=== PATIENT | male | born 1980 | race Caucasian/White ===

== ENCOUNTER 2022-01-07 10:31 | Emergency (ER) | payer MEDICARE, SELFPAY ==
--- NOTE | ~2022-01-07 | XR_ITS ---
EXAMINATION: XR foot RT min 3V, XR foot LT min 3V DATE: 01/07/2022 11:07 INDICATION: Bilateral foot pain TECHNIQUE: 1. Dorsoplantar, two oblique and lateral views of the left foot were obtained. 2. Dorsoplantar, two oblique and lateral views of the right foot were obtained. COMPARISON: None. FINDINGS: Bone alignment is normal at both feet. No fractures. Joint spaces are normal. No erosions. Minute <1 mm radiopaque foreign body projecting over the mid level of the skin surface lateral to the anterior process of the calcaneus. Soft tissues are otherwise unremarkable at both feet and ankles. IMPRESSION: 1. No osseous abnormality at either foot. Reviewed, dictated and finalized at location A. IMPRESSION: 1. No osseous abnormality at either foot.
[2022-01-07] MEDS: NALOXONE HCL INJ 2 MG/2 ML AMP (10:49)
[2022-01-07 10:51] VITALS: BP 152/85; PULSE 73; RESP 16; TEMP 36.2; O2SAT 98
--- NOTE | 2022-01-07 10:57 | PC.NURSE ---
upon arrival patient is unable to maintain balance and is crying irately. patient is placed into bed and started falling asleep, patient was sternal rubbed to waken and stated he used meth prior to arrival. patient sternal rubbed again and asked if there was any fentanyl in the meth. he states there was. erp notified of findings, narcan override form pyxis. verbal order 2x verfied to give the full 2mg IM. patient responded well to Narcan and is awake, alert and oriented, able to follow commands and is not falling asleep at this time. patient is able to answer triage questions appropriatly at this time.
--- NOTE | 2022-01-07 11:12 | ED.EXTPRO ---
HPI - Extremity Problem General Chief complaint: Extremity Problem,Nontraumatic Stated complaint: pain in R foot Time Seen by Provider: 01/07/22 10:35 Source: patient and RN notes reviewed Mode of arrival: ambulatory Limitations: no limitations History of Present Illness Complaint: extremity pain Onset (ago): day(s) (1) Location: right Severity scale (1-10): 3 Quality: aching and dull Radiation: other (right foot pain) Relieving factors: immobilization Exacerbating factors: weight bearing Associated symptoms: myalgias Related Data Home Medications Medication Instructions Recorded Confirmed No Home Medications 01/07/22 01/07/22 Allergies Allergy/AdvReac Type Severity Reaction Status Date / Time Penicillins Allergy Unknown Unknown Verified 01/07/22 10:59 Review of Systems Review of Systems: All systems reviewed & are unremarkable except as noted in HPI and below Constitutional: Constitutional: Reports no additional constitutional complaints Eyes: Eyes: Reports no additional eye complaints ENT: Reports system reviewed and no additional complaints, except as documented Cardiovascular: Cardiovascular: Reports no additional cardiovascular complaints Respiratory: Respiratory: Reports no additional respiratory complaints Gastrointestinal: Gastrointestinal: Reports no additional gastrointestinal complaints Musculoskeletal: Musculoskeletal: Reports no additional musculoskeletal complaints and Reports myalgias Integumentary/Breasts: Skin/Breast: Reports system reviewed and no additional complaints, except as docu Neurologic: Reports system reviewed and no additional complaints, except as documented Psychiatric: Psychiatric: Reports no additional psychiatric complaints Endocrine: Endocrine: Reports no additional endocrine complaints Hematologic/Lymphatic: Hematologic/Lymphatic: Reports no additional hematologic/lymphatic complaints Allergic/Immunologic: Allergic/Immunologic: Reports no additional allergic/immunologic complaints PMFSH Past Medical History Medical History Foot sprain Exam Const: General: healthy appearing and no acute distress Nutritional Appearance: well nourished Orientation/consciousness: patient oriented x3 Limitations: no limitations HENMT: Head: normal to inspection Ears: external ears normal, TM's normal bilaterally and EAC's normal General nose exam: Normal external nose present and Normal nares present Face and sinus: normal facial exam and sinuses nontender Mouth: Yes Normal oral and palatal mucosa present and Yes moist mucous membranes Teeth and gingiva: dentition normal Throat: posterior oropharynx normal Eyes: Conjunctivae: conjunctivae normal Pupils: Equal, round and reactive pupils present EOM: EOMs intact bilaterally Neck: Neck: normal visual inspection, no lymphadenopathy and no meningeal signs Chest: Chest palpation & inspection: normal inspection of the chest Resp: Effort & Inspection: normal respiratory effort Auscultation: clear to auscultation bilaterally Cardio: Rate: regular rate Rhythm: regular rhythm GI: GI Palp: Yes Soft to palpation and No Tenderness to palpation present (GI) Auscultation: normal bowel sounds : General: Yes bladder normal to palpation and Yes no CVA tenderness Back/Spine/Pelvis: Back: no CVA tenderness Skin: General skin exam: normal color Rashes: no rashes Wounds: no wounds Neuro: General: patient oriented x3, moves all extremities, no meningeal signs, no focal motor deficits and CN's II-XI intact bilaterally Cranial nerves: Yes Equal, round and reactive pupils present and Yes Nystagmus not present Speech: normal speech Gait exam (Neuro): Normal gait present Extrem: General: normal to inspection and no pedal edema Other: Minimally tender right mid-foot, no acute deformity, redness or swelling Psych: Mental Status: mental status grossly normal Affect: nor
[2022-01-07 11:31] VITALS: BP 135/84; PULSE 85; RESP 18; TEMP 36.9; O2SAT 100
== END 2022-01-07 11:35 | disposition home or self-care (01) ==
PROVIDERS: Emergency Provider Emergency Medicine
DX: M79.671 Pain in right foot (principal)
CPT/HCPCS: 73630; 96372; 99284; J2310

== ENCOUNTER 2022-02-25 01:56 | Emergency (ER) | payer MEDICARE, MEDICAID, SELFPAY ==
--- NOTE | ~2022-02-25 | XR_ITS ---
EXAMINATION: XR foot RT min 3V DATE: 02/25/2022 03:07 INDICATION: Right foot pain TECHNIQUE: Dorsoplantar, lateral, and 2 oblique views of the right foot were obtained. COMPARISON: 01/07/2022 FINDINGS: There is no fracture, dislocation, or subluxation. The bones, soft tissues, and joint space s are normal. IMPRESSION: 1. No acute osseous abnormality. Reviewed, dictated and finalized at location A.
[2022-02-25 02:07] VITALS: BP 135/87; PULSE 90; RESP 16; TEMP 37; O2SAT 100
--- NOTE | 2022-02-25 02:53 | ED.GENADULT ---
HPI - General Adult General Chief complaint: Unspecified Stated complaint: back pain Time Seen by Provider: 02/25/22 01:58 Source: patient, EMS and RN notes reviewed Mode of arrival: EMS Limitations: no limitations History of Present Illness complaint: right foot pain with radiation to the lower back----pt uses weed + gabapent Onset (ago): hour(s) (3) Location: back and right (fore-foot) Radiation: back Severity: mild Severity scale (1-10): 3 Quality: aching and dull Pain Consistency: constant Relieving factors: immobilization Exacerbating factors: movement Related Data Home Medications Medication Instructions Recorded Confirmed gabapentin 600 mg tablet 600 mg PO TID 02/25/22 02/25/22 Allergies Allergy/AdvReac Type Severity Reaction Status Date / Time Penicillins Allergy Unknown Unknown Verified 01/07/22 10:59 Review of Systems Review of Systems: All systems reviewed & are unremarkable except as noted in HPI and below Constitutional: Constitutional: Reports no additional constitutional complaints Eyes: Eyes: Reports no additional eye complaints ENT: Reports system reviewed and no additional complaints, except as documented Cardiovascular: Cardiovascular: Reports no additional cardiovascular complaints Respiratory: Respiratory: Reports no additional respiratory complaints Gastrointestinal: Gastrointestinal: Reports no additional gastrointestinal complaints Musculoskeletal: Musculoskeletal: Reports arthralgias Integumentary/Breasts: Skin/Breast: Reports system reviewed and no additional complaints, except as docu Neurologic: Reports system reviewed and no additional complaints, except as documented Psychiatric: Psychiatric: Reports no additional psychiatric complaints Endocrine: Endocrine: Reports no additional endocrine complaints Hematologic/Lymphatic: Hematologic/Lymphatic: Reports no additional hematologic/lymphatic complaints Allergic/Immunologic: Allergic/Immunologic: Reports no additional allergic/immunologic complaints PMFSH Past Medical History Medical History Foot sprain Low back pain Exam Const: General: healthy appearing and no acute distress Nutritional Appearance: well nourished Orientation/consciousness: patient oriented x3 Limitations: no limitations HENMT: Head: normal to inspection Ears: external ears normal, TM's normal bilaterally and EAC's normal General nose exam: Normal external nose present and Normal nares present Face and sinus: normal facial exam and sinuses nontender Mouth: Yes Normal oral and palatal mucosa present and Yes moist mucous membranes Teeth and gingiva: dentition normal Throat: posterior oropharynx normal Eyes: Conjunctivae: conjunctivae normal Pupils: Equal, round and reactive pupils present EOM: EOMs intact bilaterally Neck: Neck: normal visual inspection, no lymphadenopathy and no meningeal signs Chest: Chest palpation & inspection: normal inspection of the chest Resp: Effort & Inspection: normal respiratory effort Auscultation: clear to auscultation bilaterally Cardio: Rate: regular rate Rhythm: regular rhythm GI: GI Palp: Yes Soft to palpation and No Tenderness to palpation present (GI) Auscultation: normal bowel sounds : General: Yes bladder normal to palpation and Yes no CVA tenderness Back/Spine/Pelvis: Back: no CVA tenderness Skin: General skin exam: normal color Rashes: no rashes Wounds: no wounds Neuro: General: patient oriented x3, moves all extremities, no meningeal signs, no focal motor deficits and CN's II-XI intact bilaterally Cranial nerves: Yes Equal, round and reactive pupils present and Yes Nystagmus not present Speech: normal speech Gait exam (Neuro): Normal gait present Extrem: General: normal to inspection, full ROM, capillary refill normal, no pedal edema and other (minimally tender paraspinal lumbosacral back and right fore-foot. ) Right lower
[2022-02-25] MEDS: IBUPROFEN 400 MG TABLET 800 MG PO (03:04)
--- NOTE | 2022-02-25 03:23 | PC.NURSE ---
attempted to call mom patient ready for discharge, phone number not available. patient doesn't know anyone else to call. attempting to see if police will go notify mom of patient needing ride.
[2022-02-25 03:31] VITALS: BP 132/60; PULSE 70; RESP 18; O2SAT 100
--- NOTE | 2022-02-25 03:31 | PC.NURSE ---
patient made comfortable, will sleep in room 1 until police can notify mother
--- NOTE | 2022-02-25 04:00 | PC.NURSE ---
police called attempting to locate mother
--- NOTE | 2022-02-25 04:01 | PC.NURSE ---
patient took off nick wrap asking for a new one, states the nick wrap not stretchy enough. remote mortgage underwriter gave a new one, patient did not want the wrap on
--- NOTE | 2022-02-25 04:22 | PC.NURSE ---
mother is enroute per police
[2022-02-25 04:31] VITALS: BP 140/88; PULSE 78; RESP 20; TEMP 36.6; O2SAT 99
== END 2022-02-25 04:33 | disposition home or self-care (01) ==
PROVIDERS: Emergency Provider Emergency Medicine
DX: S93.601A Unspecified sprain of right foot, initial encounter (principal); M54.50 Low back pain, unspecified
CPT/HCPCS: 73630; 99283; A9270

== ENCOUNTER 2022-03-11 06:31 | Emergency (ER) | payer BC, SELFPAY ==
[2022-03-11 06:36] VITALS: BP 122/68; PULSE 72; RESP 20; TEMP 37; O2SAT 100
--- NOTE | 2022-03-11 06:36 | ECG_ITS ---
Measurements Intervals [place] Rate: 94 P: 78 [place]: 166 QRS: 34 QRSD: 109 T: 50 QT: 352 QTc: 440 Interpretive Statements SINUS RHYTHM INCOMPLETE RIGHT BUNDLE BRANCH BLOCK MINIMAL Q WAVES- INFERIOR LEADS BORDERLINE ECG NO PREVIOUS ECG AVAILABLE FOR COMPARISON Electronically Signed On 03-11-2022 8:39:36 CDT by Javier Pop D.O.
--- NOTE | 2022-03-11 06:53 | ED.MEDCLEAR ---
HPI - Medical Clearance General Chief complaint: Medical Clearance <Sterling Crockett MD - Last Filed: 03/11/22 06:59> Stated complaint: Anxiety <Sterling Crockett MD - Last Filed: 03/11/22 06:59> Source: patient and EMS <Sterling Crockett MD - Last Filed: 03/11/22 06:59> Mode of arrival: EMS <Sterling Crockett MD - Last Filed: 03/11/22 06:59> Limitations: no limitations <Sterling Crockett MD - Last Filed: 03/11/22 06:59> History of Present Illness HPI Narrative: this is a 41-year-old gentleman that lives with his mother has a history of anxiety depression and substance abuse, presents this morning via EMS with no suicidal intent no suicidal ideation, but has severe anxiety and depression of and uses multiple substances to to medicate himself to try to help with anxiety and depression, uses some alcohol/fentanyl among other things. Patient is requesting help with his anxiety and depression, there is no chest pain no shortness of breath no abdominal pain no nausea vomiting no fever chills. Patient explains that he is totally dependent on his mother as he lives at home and he has difficulty Imodium motivating himself to pay his bills. <Sterling Crockett MD - Last Filed: 03/11/22 06:59> MD complaint: medical clearance requested <Sterling Crockett MD - Last Filed: 03/11/22 06:59> Onset (ago): day(s) <Sterling Crockett MD - Last Filed: 03/11/22 06:59> Related Information Home medications: Home Medications Medication Instructions Recorded Confirmed No Home Medications 03/11/22 03/11/22 <Sterling Crockett MD - Last Filed: 03/11/22 06:59> Allergies/Adverse reactions: Allergies Allergy/AdvReac Type Severity Reaction Status Date / Time Penicillins Allergy Unknown Unknown Verified 01/07/22 10:59 <Sterling Crockett MD - Last Filed: 03/11/22 06:59> Review of Systems Review of Systems: All systems reviewed & are unremarkable except as noted in HPI and below <Sterling Crockett MD - Last Filed: 03/11/22 06:59> PMFSH Past Medical History Medical History: Medical History Foot sprain Low back pain <Sterling Crockett MD - Last Filed: 03/11/22 06:59> Exam Const: General: healthy appearing, no acute distress and alert <Sterling Crockett MD - Last Filed: 03/11/22 06:59> Nutritional Appearance: well nourished <Sterling Crockett MD - Last Filed: 03/11/22 06:59> Limitations: no limitations <Sterling Crockett MD - Last Filed: 03/11/22 06:59> HENMT: Head: normal to inspection <Sterling Crockett MD - Last Filed: 03/11/22 06:59> Face and sinus: normal facial exam <Sterling Crockett MD - Last Filed: 03/11/22 06:59> Mouth: Yes Normal oral and palatal mucosa present <Sterling Crockett MD - Last Filed: 03/11/22 06:59> Eyes: Conjunctivae: conjunctivae normal <Sterling Crockett MD - Last Filed: 03/11/22 06:59> Pupils: Equal, round and reactive pupils present <Sterling Crockett MD - Last Filed: 03/11/22 06:59> EOM: EOMs intact bilaterally <Sterling Crockett MD - Last Filed: 03/11/22 06:59> Direct Ophthalmoscopy: no photophobia <Sterling Crockett MD - Last Filed: 03/11/22 06:59> Neck: Neck: normal visual inspection, no lymphadenopathy and no meningeal signs <MD Carlton Wilson Last Filed: 03/11/22 06:59> Chest: Chest palpation & inspection: normal inspection of the chest <Sterling Crockett MD - Last Filed: 03/11/22 06:59> Resp: Effort & Inspection: normal respiratory effort <MD Carlton Wilson Last Filed: 03/11/22 06:59> Auscultation: clear to auscultation bilaterally <Sterling Crockett MD - Last Filed: 03/11/22 06:59> Cardio: Rate: regular rate <Sterling Crockett MD - Last Filed: 03/11/22 06:59> Rhythm: regular rhythm <Sterling Crockett MD - Last Filed: 03/11/22 06:59> GI: GI Palp: Yes Soft to palpation <Sterling Crockett MD - Last Filed: 03/11/22 06:5
--- NOTE | 2022-03-11 06:54 | PC.NURSE ---
states did meth 7hours ago
[2022-03-11 07:03] LABS: Basophils Absolute Auto 0.03 K/mm3 (0.00-0.10); Basophils Percent Auto 0.5 % (0.0-1.0); Eosinophils Percent Auto 1.7 % (1.0-6.0); Hematocrit 43.5 % (40.0-54.0); Hemoglobin 14.8 g/dL (14.0-18.0); Immature Granulocyte Absolute 0.01 K/mm3 (0.00-0.00); Immature Granulocyte Percent A 0.2 % (0.0-0.0); Lymphocytes Absolute Auto 1.66 K/mm3 (1.10-4.50); Mean Corpuscular Volume 91.2 fL (78.0-102.0); Mean Platelet Volume 9.2 fl (8.7-11.0); Monocytes Absolute Auto 0.51 K/mm3 (0.10-0.90); Monocytes Percent Auto 8.6 % (2.0-11.0); Neutrophils Absolute Auto 3.6 K/mm3 (1.7-7.2); Platelet Count Result 296 K/mm3 (150-420); Red Blood Count 4.77 M/mm3 (4.70-6.10); Red Cell Distribution Width 12.8 % (11.6-14.4); White Blood Count 5.9 K/mm3 (4.8-10.8)
[2022-03-11 07:13] LABS: Amphetamine Screen Urine Positive (Negative); Barbiturate Screen Urine Negative (Negative); Benzodiazepines Screen Urine Negative (Negative); Cannabinoid Screen Urine Positive (Negative); Cocaine Screen Urine Negative (Negative); Methadone Screen Urine Negative (Negative); Opiate Screen Urine Negative (Negative); Phencyclidine Screen Urine Negative (Negative)
[2022-03-11 07:25] LABS: Alanine Aminotransferase 252 U/L (16-63); Albumin Level 4.1 g/dL (3.4-5.0); Alkaline Phosphatase 92 U/L (46-116); Anion Gap 11 mmol/L (8-16); Aspartate Amino Transferase 97 U/L (15-37); Bilirubin,Total 0.5 mg/dL (0.00-1.00); Blood Urea Nitrogen 12 mg/dL (7-18); Calcium 8.9 mg/dL (8.5-10.1); Carbon Dioxide 24 mmol/L (21-32); Chloride 106 mmol/L (98-108); Estimated CRCL calculation 76 ml/min; Estimated Glomerular Filt Rate > 60; Glucose 93 mg/dL (70-99); Osmolality Calculated 291 mOsm/kg (285-295); Potassium 3.7 mmol/L (3.5-5.1); Salicylate 2.4 mg/dL (2.8-20.0); Sodium 141 mmol/L (136-145); Thyroid Stimulating Hormone 0.35 uIU/mL (0.36-3.74); Total Protein 7.4 g/dL (6.4-8.2)
[2022-03-11 07:33] LABS: Acetaminophen < 2 ug/mL (10-30); Ethanol < 3 mg/dL (0-6)
[2022-03-11 08:30] VITALS: BP 135/74; PULSE 85; RESP 14; TEMP 36.1; O2SAT 97
[2022-03-11 10:10] VITALS: BP 136/74; PULSE 64; RESP 16; O2SAT 98
== END 2022-03-11 10:15 | disposition home or self-care (01) ==
PROVIDERS: Emergency Provider Emergency Medicine
DX: F41.9 Anxiety disorder, unspecified (principal); F32.A Depression, unspecified; F19.10 Other psychoactive substance abuse, uncomplicated
CPT/HCPCS: 36415; 80053; 80307; 84443; 85025; 93005; 99283

== ENCOUNTER 2022-03-13 14:10 | Emergency (ER) | payer BC, SELFPAY ==
[2022-03-13 14:30] VITALS: BP 129/54; PULSE 92; RESP 18; TEMP 36.6; O2SAT 100
--- NOTE | 2022-03-13 15:02 | PC.NURSE ---
upon attempted to get patient to change out of clothing into psych scrubs again. patient got agitated and walked out. per erp patient was not danger to self or anyone else to let him leave.
--- NOTE | 2022-03-13 15:07 | ED.PSYCH ---
HPI - Psych General Chief Complaint: Psychiatric Symptoms Stated Complaint: MENTAL EVAL Time Seen by Provider: 03/13/22 14:12 Source: patient and RN notes reviewed Mode of arrival: ambulatory Limitations: no limitations History of Present Illness complaint: feels depressed Onset (ago): day(s) (2) Duration: constant History of same: Yes Relieving factors: none Exacerbating factors: none Associated psychiatric symptoms: racing thoughts Associated symptoms: denies other symptoms Treatments prior to arrival: none Related Data Home Medications Medication Instructions Recorded Confirmed No Home Medications 03/11/22 03/13/22 Allergies Allergy/AdvReac Type Severity Reaction Status Date / Time Penicillins Allergy Unknown Unknown Verified 03/13/22 14:38 Review of Systems Review of Systems: All systems reviewed & are unremarkable except as noted in HPI and below Constitutional: Constitutional: Reports no additional constitutional complaints Eyes: Eyes: Reports no additional eye complaints ENT: Reports system reviewed and no additional complaints, except as documented Cardiovascular: Cardiovascular: Reports no additional cardiovascular complaints Respiratory: Respiratory: Reports no additional respiratory complaints Gastrointestinal: Gastrointestinal: Reports no additional gastrointestinal complaints Musculoskeletal: Musculoskeletal: Reports no additional musculoskeletal complaints Integumentary/Breasts: Skin/Breast: Reports system reviewed and no additional complaints, except as docu Neurologic: Reports system reviewed and no additional complaints, except as documented Psychiatric: Psychiatric: Reports no additional psychiatric complaints and Reports depression Endocrine: Endocrine: Reports no additional endocrine complaints Hematologic/Lymphatic: Hematologic/Lymphatic: Reports no additional hematologic/lymphatic complaints Allergic/Immunologic: Allergic/Immunologic: Reports no additional allergic/immunologic complaints PMFSH Past Medical History Medical History (Updated 03/23/22 @ 14:50 by Mike Theodore MD) Depressed Foot sprain Low back pain Social History Social History Substance use type: amphetamines and methamphetamine Exam Const: General: no acute distress Nutritional Appearance: well nourished Orientation/consciousness: patient oriented x3 Limitations: no limitations HENMT: Head: normal to inspection Ears: external ears normal, TM's normal bilaterally and EAC's normal General nose exam: Normal external nose present and Normal nares present Face and sinus: normal facial exam and sinuses nontender Mouth: Yes Normal oral and palatal mucosa present and Yes moist mucous membranes Teeth and gingiva: dentition normal Throat: posterior oropharynx normal Eyes: Conjunctivae: conjunctivae normal Pupils: Equal, round and reactive pupils present EOM: EOMs intact bilaterally Neck: Neck: normal visual inspection, no lymphadenopathy and no meningeal signs Chest: Chest palpation & inspection: normal inspection of the chest Resp: Effort & Inspection: normal respiratory effort Auscultation: clear to auscultation bilaterally Cardio: Rate: regular rate Rhythm: regular rhythm GI: GI Palp: Yes Soft to palpation and No Tenderness to palpation present (GI) Auscultation: normal bowel sounds : General: Yes bladder normal to palpation and Yes no CVA tenderness Back/Spine/Pelvis: Back: no CVA tenderness Skin: General skin exam: normal color Rashes: no rashes Wounds: no wounds Neuro: General: patient oriented x3, moves all extremities, no meningeal signs, no focal motor deficits and CN's II-XI intact bilaterally Cranial nerves: Yes Equal, round and reactive pupils present and Yes Nystagmus not present Speech: normal speech Gait exam (Neuro): Normal gait present Extrem: General: normal to inspection and no pedal edema Psych:
== END 2022-03-13 15:05 | disposition left against medical advice (07) ==
PROVIDERS: Emergency Provider Emergency Medicine
DX: F99 Mental disorder, not otherwise specified (principal)
CPT/HCPCS: 99281

== ENCOUNTER 2022-10-21 04:14 | Emergency (ER) | payer MEDICARE, MEDICAID, SELFPAY ==
[2022-10-21 04:16] VITALS: BP 106/80; PULSE 96; RESP 18; TEMP 36.6; O2SAT 98
[2022-10-21 04:48] VITALS: PULSE 96
--- NOTE | 2022-10-21 04:55 | PC.NURSE ---
Confiscated unknown substances from patient. Given to security.
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
[2022-10-21] MEDS: LORazepam (*CRX) 1 MG TABLET PO (04:59)
--- NOTE | 2022-10-21 05:30 | PC.NURSE ---
patient removed IV by accident.
[2022-10-21 05:52] VITALS: BP 102/70; PULSE 98; RESP 18; O2SAT 98
[2022-10-21 06:35] VITALS: BP 104/78; PULSE 99; RESP 18; O2SAT 99
== END 2022-10-21 06:36 | disposition home or self-care (01) ==
PROVIDERS: Emergency Provider Emergency Medicine
DX: M79.671 Pain in right foot (principal); F12.929 Cannabis use, unspecified with intoxication, unspecified; F11.129 Opioid abuse with intoxication, unspecified
CPT/HCPCS: 99283; A9270

== ENCOUNTER 2024-08-27 10:32 | Emergency (ER) | payer MEDICARE, MEDICAID, SELFPAY ==
[2024-08-27 10:41] VITALS: BP 125/96; PULSE 84; RESP 20; TEMP 36.8; O2SAT 97
--- NOTE | 2024-08-27 11:11 | ED.SKABFB ---
HPI - Skin/Abscess/Foreign Bdy General Chief complaint: Skin/Abscess/Foreign Body Stated complaint: Lump in upper chest, noticed it 08/25/24 Time Seen by Provider: 08/27/24 10:51 Source: patient Mode of arrival: ambulatory Limitations: no limitations History of Present Illness HPI narrative: This is a 44 year old male that presents to the ER for swelling noted over the right clavicle. Reports he noticed this 2 days ago. The area is not painful, red. He has not had any fevers. Related Data Home Medications ?Medication ?Instructions ?Recorded ?Confirmed ?Last Taken ?Type No Home Medications 03/11/22 03/13/22 Unknown History Allergies Allergy/AdvReac Type Severity Reaction Status Date / Time Penicillins Allergy Unknown Hives Verified 08/27/24 10:54 Review of Systems Review of Systems: CONSTITUTIONAL: Denies fever CARDIOVASCULAR: Denies chest pain SKIN: Denies rash All systems reviewed & are unremarkable except as noted in HPI and below PMFSH Past Medical History Medical History Depressed Foot sprain Low back pain Social History Social History Substance use type: amphetamines and methamphetamine Exam Narrative: GENERAL: Well-appearing, well-nourished, and in no acute distress. HEAD: Normocephalic, atraumatic. EYES: EOMI. CHEST: No respiratory distress. The right mid clavicle is slightly more prominent HEART: Regular rate EXTREMITIES: Normal range of motion. No edema. SKIN: Warm, dry, no rash. NEURO: No focal deficits. Alert and oriented x3. PSYCH: Normal mood and affect Course Course Emergency Course: Patient updated on his workup and agrees with plan of care Vital Signs Vital signs: Vital Signs Temperature 98.3 F 08/27/24 10:41 Pulse Rate 84 08/27/24 10:41 Respiratory Rate 20 08/27/24 10:41 Blood Pressure 125/96 H 08/27/24 10:41 Pulse Oximetry 97 08/27/24 10:41 Oxygen Delivery Room Air 08/27/24 10:41 Temperature 98.3 F 08/27/24 10:41 Pulse Rate 84 08/27/24 10:41 Respiratory Rate 20 08/27/24 10:41 Blood Pressure 125/96 H 08/27/24 10:41 Pulse Oximetry 97 08/27/24 10:41 Oxygen Delivery Room Air 08/27/24 10:41 MDM - Skin/Abscess/Foreign Bdy MDM Narrative Medical decision making narrative: Patient presents the emergency department for swelling about the right mid clavicle. He reports he noticed this 2 days prior. There is no associated pain, redness. His right mid clavicle is slightly more prominent the left. Clavicle x-rays are without acute findings. Patient was updated on his workup and agrees with plan of care. Instructed to follow up with primary provider for further evaluation. He was given warnings to return to the ER Imaging Data Radiologist's impression: ITS Impressions Clavicle X-Ray 08/27/24 11:40 IMPRESSION: Unremarkable plain film evaluation of the bilateral clavicles, as detailed above. Critical Care Time Critical Care Time Critical Care Time: No Discharge Plan Discharge Clinical Impression: Swelling of clavicular region Patient Disposition: Home, Self-Care Condition: Stable Additional Instructions: Return to the emergency department if you experience fever, chest pain, shortness of breath, or any other symptoms that are concerning to you. Follow up with your primary care doctor Patient Language: Trinid[place] Prescriptions: No Action No Home Medications Follow-up/Referrals: Colin Schulz MD [Physician] - PHYSICIAN,[employer]CHOOL [employer]OR [Non-Staff] -
== END 2024-08-27 12:05 | disposition home or self-care (01) ==
PROVIDERS: Emergency Provider Physician Assistant
DX: R22.2 Localized swelling, mass and lump, trunk (principal)
CPT/HCPCS: 73000; 99283